=== PATIENT | female | born 1995 | race Caucasian/White ===

== ENCOUNTER 2018-08-26 22:56 | Inpatient (IN) | payer MEDICAID, OTHER ==
[~2018-08-26] VITALS: Ht 162.6 cm; Wt 82.0 kg
[2018-08-27] MEDS ORDERED: KETOROLAC 60 MG INJ IM STA (00:59)
[2018-08-27] MEDS ORDERED: HYDROmorphONE 0.5 MG/0.5 ML SYG IV STA (03:21)
[2018-08-27] MEDS ORDERED: SOD CHLORIDE 0.9% 1,000 ML IV STA (03:25)
[2018-08-27] MEDS ORDERED: PIPER-TAZO 3.375 GM IV (PMX) 100 ML IVPB ONE (03:30)
[2018-08-27 04:28] VITALS: Ht 162.6 cm; Wt 82.0 kg
[2018-08-27 04:29] VITALS: BP 122/70; PULSE 68; RESP 18
[2018-08-27] MEDS ORDERED: morphine 2 MG INJ IV PRN (04:30)
[2018-08-27] MEDS ORDERED: ACETAMINOPHEN 650 MG SUPP PR PRN (04:30)
[2018-08-27] MEDS ORDERED: ONDANSETRON 4 MG INJ IV PRN (04:30)
[2018-08-27] MEDS ORDERED: NACL 0.9% 3 ML SYG IV SCH (04:30)
[2018-08-27] MEDS ORDERED: ALBUTEROL/IPRATROPIUM (NEB) 3 ML AMP HHN PRN (04:30)
[2018-08-27] MEDS: DEXTROSE 5%-0.45% NACL 1,000 ML IV SCH ×3 (05:34→21:06)
--- NOTE | 2018-08-27 07:21 | HP ---
Date/Time of Note Date/Time of Note DATE: 08/27/18 TIME: 07:18 Assessment/Plan VTE Prophylaxis SCD applied (from Nsg): Yes Pharmacological prophylaxis: NA/contraindicated Pharm contraindication: low risk/ambulating, other (awaiting surgery) Lines/Catheters IV Catheter Type (from Nrsg): Peripheral IV Assessment/Plan Assessment/Plan 23 year-old female with right upper quadrant pain of 2 months duration secondary to cholecystitis, with CT showing immobile 1.7 cm stone in the gallbladder neck with findings suggestive of acute cholecystitis. PLAN -Keep n.p.o. with IV fluid -IV antibiotic -Pain management -Awaiting surgical eval Result Diagram: 08/27/18 0114 08/27/18 0114 Results 24hrs Laboratory Tests Test 08/27/18 01:14 08/27/18 01:26 White Blood Count 5.9 Red Blood Count 4.54 Hemoglobin 13.7 Hematocrit 39.8 Mean Corpuscular Volume 87.7 Mean Corpuscular Hemoglobin 30.2 Mean Corpuscular Hemoglobin Concent 34.4 Red Cell Distribution Width 12.2 Platelet Count 349 Mean Platelet Volume 9.9 Immature Granulocytes % 0.200 Neutrophils % 47.0 Lymphocytes % 43.1 Monocytes % 7.7 Eosinophils % 1.3 Basophils % 0.7 Nucleated Red Blood Cells % 0.0 Immature Granulocytes # 0.010 Neutrophils # 2.8 Lymphocytes # 2.6 Monocytes # 0.5 Eosinophils # 0.1 Basophils # 0.0 Nucleated Red Blood Cells # 0.0 Urine Color STRAW Urine Clarity CLEAR Urine pH 8.0 Urine Specific [place] 1.006 Urine Ketones NEGATIVE Urine Nitrite NEGATIVE Urine Bilirubin NEGATIVE Urine Urobilinogen NEGATIVE Urine Leukocyte Esterase NEGATIVE Urine Hemoglobin NEGATIVE Urine Glucose NEGATIVE Urine Total Protein NEGATIVE Sodium Level 143 Potassium Level 4.1 Chloride Level 103 Carbon Dioxide Level 30 Anion Gap 10 Blood Urea Nitrogen 6 L Creatinine 0.66 Est Glomerular Filtrat Rate mL/min > 60 Glucose Level 115 Calcium Level 9.9 Total Bilirubin 0.5 Direct Bilirubin 0.00 Indirect Bilirubin 0.5 Aspartate Amino Transf (AST/SGOT) 24 Alanine Aminotransferase (ALT/SGPT) 36 Alkaline Phosphatase 69 Total Protein 8.6 H Albumin 4.7 Globulin 3.90 H Albumin/Globulin Ratio 1.20 Lipase 73 POC Beta HCG, Qualitative NEGATIVE HPI/ROS Admit Date/Time Admit Date/Time Aug 27, 2018 at 03:10 Hx of Present Illness Patient is a 23-year-old female with no past medical history who presents the ER complaining of right upper quadrant abdominal pain x2 months. She also reported associated nausea/vomiting. She said a month ago she was evaluated at [facility] where an ultrasound was done. She was diagnosed with gastritis and has been taking Pepcid without improvement in her pain. When she presented to the ER, CT abdomen/pelvis shows Immobile 1.7 cm stone in the gallbladder neck with findings suggestive of acute cholecystitis and Hepatosteatosis. Liver chemistries and lipase WNL. PMH/Family/Social Past Medical History Medical History: no pertinent history Medications Current Medications Dextrose/Sodium Chloride 1,000 ml @ 120 mls/hr Q8H20M IV Last administered on 08/27/18at 05:34; Admin Dose 120 MLS/HR; Start 08/27/18 at 04:26 IV Flush (NS 3 ml) 3 ml PER PROTOCOL IV ; Start 08/27/18 at 04:30 Ondansetron HCl (Zofran Inj) 4 mg Q6H PRN IV NAUSEA/VOMITING; Start 08/27/18 at 04:30 Acetaminophen (Tylenol Supp) 650 mg Q6H PRN [place] .PAIN 1-3 OR TEMP; Start 08/27/18 at 04:30 Morphine Sulfate (morphine) 3 mg Q4H PRN IV .SEVERE PAIN 7-10; Start 08/27/18 at 04:30 Famotidine (Pepcid Iv) 20 mg Q12 IV ; Start 08/27/18 at 09:00 Albuterol/ Ipratropium (Duoneb) 3 ml Q2H RESP THERAPY PRN HHN SHORTNESS OF BREATH; Start 08/27/18 at 04:30 Ketorolac Tromethamine (Toradol) 30 mg Q6H PRN IV PAIN LEVEL 1-3; Start 08/27/18 at 04:30; Stop 08/30/18 at 04:29 Piperacillin Sod/ Tazobactam Sod 100 ml @ 200 mls/hr Q6 IVPB ; Start 08/27/18 at 08:00 Coded Allergies: No Known Allergy (Unverified , 08/26/18) Past Surgical History Past Surgical Hx: no surgical history Family History Significant Family History: no pertinent family hx Social History Alcohol Use: none Smoking Status: Never smoker Drug Use: none Exam/Review of Systems Vital Signs Vitals Vital Signs Date Temp Pulse Resp B/P (MAP) Pulse Ox O2 O2 Flow FiO2 Time Delivery Rate 08/27/18 98.0 68 18 122/70 99 Room Air 04:29 (87) Intake and Output 08/26/18 08/26/18 08/27/18 1515:00 23:00 07:00 IntakeIntake Total 1100 ml OutputOutput Total 200 ml BalanceBalance 900 ml Exam Constitutional: alert, oriented, well developed Head: normocephalic, atraumatic Eyes: EOMI, PERRL Respiratory: clear to auscultation, normal air movement Cardiovascular: regular rate and rhythm, nl pulses Gastrointestinal: soft, tender Extremities: normal pulses JACLYN ORTIZ MD Aug 27, 2018 07:21
[2018-08-27 07:53] VITALS: BP 96/59; PULSE 64; RESP 20
[2018-08-27] MEDS: KETOROLAC 30 MG INJ IV PRN ×3 (09:42→22:07)
[2018-08-27] MEDS: PIPER-TAZO 3.375 GM IV (PMX) 100 ML IVPB SCH ×3 (09:42→17:41)
[2018-08-27] MEDS: FAMOTIDINE 20 MG INJ IV SCH ×2 (09:42→21:29)
--- NOTE | 2018-08-27 17:55 | PN ---
Date/Time of Note Date/Time of Note DATE: 08/27/18 TIME: 17:53 Assessment/Plan VTE Prophylaxis Risk score (from Ns)>0 risk: 0 SCD applied (from Ns): Yes Pharmacological prophylaxis: NA/contraindicated Pharm contraindication: low risk/ambulating Lines/Catheters IV Catheter Type (from Nrsg): Peripheral IV Urinary Cath still in place: No Assessment/Plan Hospital Course Assessment and plan #Cholecystitis. Continue IV fluids Surgeon consulted Continue with analgesics Antipyretics as needed for fever On antibiotics for now #Obesity Weight reduction to be advised Disposition and plan. Continue with IV fluids. Continue analgesics. Surgeon evaluation to follow. Discussed POC with Dr. Caballero Result Diagram: 08/27/18 0114 08/27/18 0114 Results 24hrs Laboratory Tests Test 08/27/18 01:14 08/27/18 01:26 White Blood Count 5.9 Red Blood Count 4.54 Hemoglobin 13.7 Hematocrit 39.8 Mean Corpuscular Volume 87.7 Mean Corpuscular Hemoglobin 30.2 Mean Corpuscular Hemoglobin Concent 34.4 Red Cell Distribution Width 12.2 Platelet Count 349 Mean Platelet Volume 9.9 Immature Granulocytes % 0.200 Neutrophils % 47.0 Lymphocytes % 43.1 Monocytes % 7.7 Eosinophils % 1.3 Basophils % 0.7 Nucleated Red Blood Cells % 0.0 Immature Granulocytes # 0.010 Neutrophils # 2.8 Lymphocytes # 2.6 Monocytes # 0.5 Eosinophils # 0.1 Basophils # 0.0 Nucleated Red Blood Cells # 0.0 Urine Color STRAW Urine Clarity CLEAR Urine pH 8.0 Urine Specific [place] 1.006 Urine Ketones NEGATIVE Urine Nitrite NEGATIVE Urine Bilirubin NEGATIVE Urine Urobilinogen NEGATIVE Urine Leukocyte Esterase NEGATIVE Urine Hemoglobin NEGATIVE Urine Glucose NEGATIVE Urine Total Protein NEGATIVE Sodium Level 143 Potassium Level 4.1 Chloride Level 103 Carbon Dioxide Level 30 Anion Gap 10 Blood Urea Nitrogen 6 L Creatinine 0.66 Est Glomerular Filtrat Rate mL/min > 60 Glucose Level 115 Calcium Level 9.9 Total Bilirubin 0.5 Direct Bilirubin 0.00 Indirect Bilirubin 0.5 Aspartate Amino Transf (AST/SGOT) 24 Alanine Aminotransferase (ALT/SGPT) 36 Alkaline Phosphatase 69 Total Protein 8.6 H Albumin 4.7 Globulin 3.90 H Albumin/Globulin Ratio 1.20 Lipase 73 POC Beta HCG, Qualitative NEGATIVE Subjective 24 Hr Interval Summary Free Text/Dictation Still reports having some abdominal pain. No reports of nausea vomiting at present. Exam/Review of Systems Exam Vitals Vital Signs Date Temp Pulse Resp B/P (MAP) Pulse Ox O2 O2 Flow FiO2 Time Delivery Rate 08/27/18 98.0 64 20 96/59 (71) 99 Room Air 07:53 Intake and Output 08/26/18 08/26/18 08/27/18 1515:00 23:00 07:00 IntakeIntake Total 1100 ml OutputOutput Total 200 ml BalanceBalance 900 ml Constitutional: alert, oriented Psych: nl mood/affect Head: normocephalic Respiratory: clear to auscultation, normal air movement Gastrointestinal: soft, tender Neurological: MUSICAL PERFORMER II-XII intact, nl mental status, nl speech Skin: nl turgor Results Results 24hrs Laboratory Tests Test 08/27/18 01:14 08/27/18 01:26 White Blood Count 5.9 Red Blood Count 4.54 Hemoglobin 13.7 Hematocrit 39.8 Mean Corpuscular Volume 87.7 Mean Corpuscular Hemoglobin 30.2 Mean Corpuscular Hemoglobin Concent 34.4 Red Cell Distribution Width 12.2 Platelet Count 349 Mean Platelet Volume 9.9 Immature Granulocytes % 0.200 Neutrophils % 47.0 Lymphocytes % 43.1 Monocytes % 7.7 Eosinophils % 1.3 Basophils % 0.7 Nucleated Red Blood Cells % 0.0 Immature Granulocytes # 0.010 Neutrophils # 2.8 Lymphocytes # 2.6 Monocytes # 0.5 Eosinophils # 0.1 Basophils # 0.0 Nucleated Red Blood Cells # 0.0 Urine Color STRAW Urine Clarity CLEAR Urine pH 8.0 Urine Specific [place] 1.006 Urine Ketones NEGATIVE Urine Nitrite NEGATIVE Urine Bilirubin NEGATIVE Urine Urobilinogen NEGATIVE Urine Leukocyte Esterase NEGATIVE Urine Hemoglobin NEGATIVE Urine Glucose NEGATIVE Urine Total Protein NEGATIVE Sodium Level 143 Potassium Level 4.1 Chloride Level 103 Carbon Dioxide Level 30 Anion Gap 10 Blood Urea Nitrogen 6 L Creatinine 0.66 Est Glomerular Filtrat Rate mL/min > 60 Glucose Level 115 Calcium Level 9.9 Total Bilirubin 0.5 Direct Bilirubin 0.00 Indirect Bilirubin 0.5 Aspartate Amino Transf (AST/SGOT) 24 Alanine Aminotransferase (ALT/SGPT) 36 Alkaline Phosphatase 69 Total Protein 8.6 H Albumin 4.7 Globulin 3.90 H Albumin/Globulin Ratio 1.20 Lipase 73 POC Beta HCG, Qualitative NEGATIVE Medications Medication Current Medications Dextrose/Sodium Chloride 1,000 ml @ 120 mls/hr Q8H20M IV Last administered on 08/27/18at 17:41; Admin Dose 120 MLS/HR; Start 08/27/18 at 04:26 IV Flush (NS 3 ml) 3 ml PER PROTOCOL IV ; Start 08/27/18 at 04:30 Ondansetron HCl (Zofran Inj) 4 mg Q6H PRN IV NAUSEA/VOMITING; Start 08/27/18 at 04:30 Acetaminophen (Tylenol Supp) 650 mg Q6H PRN [place] .PAIN 1-3 OR TEMP; Start 08/27/18 at 04:30 Morphine Sulfate (morphine) 3 mg Q4H PRN IV .SEVERE PAIN 7-10; Start 08/27/18 at 04:30 Famotidine (Pepcid Iv) 20 mg Q12 IV Last administered on 08/27/18at 09:42; Admin Dose 20 MG; Start 08/27/18 at 09:00 Albuterol/ Ipratropium (Duoneb) 3 ml Q2H RESP THERAPY PRN HHN SHORTNESS OF BREATH; Start 08/27/18 at 04:30 Ketorolac Tromethamine (Toradol) 30 mg Q6H PRN IV PAIN LEVEL 1-3 Last administered on 08/27/18at 16:03; Admin Dose 30 MG; Start 08/27/18 at 04:30; Stop 08/30/18 at 04:29 Piperacillin Sod/ Tazobactam Sod 100 ml @ 200 mls/hr Q6 IVPB Last administered on 08/27/18at 17:41; Admin Dose 200 MLS/HR; Start 08/27/18 at 08:00 VIMAL VILLA NP Aug 27, 2018 17:55
[2018-08-27 19:39] VITALS: BP 109/56; PULSE 72; RESP 18
[2018-08-28] VITALS (27 sets, daily range): BP systolic 98–129; BP diastolic 50–80; PULSE 60–88; RESP 15–26
[2018-08-28] MEDS: PIPER-TAZO 3.375 GM IV (PMX) 100 ML IVPB SCH ×5 (00:09→21:45)
[2018-08-28] MEDS: DEXTROSE 5%-0.45% NACL 1,000 ML IV SCH ×4 (03:17→21:45)
[2018-08-28] MEDS ORDERED: DESFLURANE 15 MIN ONE (07:00)
[2018-08-28] MEDS: FAMOTIDINE 20 MG INJ IV SCH ×2 (08:45→20:41)
[2018-08-28] MEDS: KETOROLAC 30 MG INJ IV PRN ×3 (08:46→21:45)
--- NOTE | 2018-08-28 09:52 | PN ---
Date/Time of Note Date/Time of Note DATE: 08/28/18 TIME: 09:50 Assessment/Plan VTE Prophylaxis Risk score (from Nsg)>0 risk: 0 SCD applied (from Nsg): No SCD contraindicated: other Pharmacological prophylaxis: NA/contraindicated Pharm contraindication: low risk/ambulating Lines/Catheters IV Catheter Type (from Nrsg): Peripheral IV Urinary Cath still in place: No Assessment/Plan Hospital Course SUBJECTIVE: Continues to have abdominal pain, requiring pain medications. OBJECTIVE: Physical Exam General: Obese, 23 year-old female lying in bed in no apparent distress. HEENT: Normocephalic, atraumatic. Eyes: Anicteric sclerae, conjunctivae clear. ENT: Nasal septum midline, oral mucosa is dry. Neck supple, no JVD noticed. Respiratory: Bilaterally clear breath sounds. No use of accessory muscles of respiration. No adventitious breath sounds. Cardiovascular: S1, S2 heard. No murmurs or gallops. Abdomen: Soft, nontender, and nondistended. Bowel sounds positive in all 4 quadrants. Genitourinary: Deferred. Extremities: No cyanosis, no clubbing, no edema. Peripheral pulses palpable. Neurologic: Cranial nerves II through XII grossly intact. The patient is awake, alert, and oriented. Skin: Normal skin turgor. No skin rashes. Labs & Vitals per chart ASSESSMENT & PLAN 23-year-old female with no significant past medical history who presented to the emergency room with chief complaint of abdominal pain with multiple episodes of nausea and vomiting, who was previously evaluated at [facility] and has been managed symptomatically for her abdominal pain. Gallbladder ultrasound at [facility] ER showed a mobile 1.7 cm stone in the gallbladder neck with findings suggestive of acute cholecystitis and hepato- steatosis. 1. Symptomatic cholelithiasis. Possible underlying cholecystitis. Continue antimicrobials. General surgery evaluation pending. 2. Obesity. BMI 31 kg/m. Weight reduction will be advised. 3. Fluids, electrolytes, and nutrition. N.p.o. except for medications. IVFs. 4. DVT prophylaxis Bilateral SCDs. 5. Plan. Continue pain control. Continue antimicrobials. Await surgical evaluation/intervention. The patient was seen in collaboration with Dr. Marks. Result Diagram: 08/28/18 0431 08/28/18 0431 Results 24hrs Laboratory Tests Test 08/28/18 04:31 White Blood Count 4.7 #L Red Blood Count 3.90 L Hemoglobin 11.7 L Hematocrit 34.9 L Mean Corpuscular Volume 89.5 Mean Corpuscular Hemoglobin 30.0 Mean Corpuscular Hemoglobin Concent 33.5 Red Cell Distribution Width 12.7 Platelet Count 285 Mean Platelet Volume 10.1 Immature Granulocytes % 0.200 Neutrophils % 35.4 L Lymphocytes % 51.8 H Monocytes % 8.7 Eosinophils % 2.8 Basophils % 1.1 Nucleated Red Blood Cells % 0.0 Immature Granulocytes # 0.010 Neutrophils # 1.7 Lymphocytes # 2.4 Monocytes # 0.4 Eosinophils # 0.1 Basophils # 0.1 Nucleated Red Blood Cells # 0.0 Sodium Level 140 Potassium Level 3.7 Chloride Level 107 Carbon Dioxide Level 27 Anion Gap 6 Blood Urea Nitrogen 4 L Creatinine 0.65 Est Glomerular Filtrat Rate mL/min > 60 Glucose Level 125 Calcium Level 8.8 Phosphorus Level 3.6 Magnesium Level 1.9 Total Bilirubin 0.7 Direct Bilirubin 0.00 Indirect Bilirubin 0.7 Aspartate Amino Transf (AST/SGOT) 23 Alanine Aminotransferase (ALT/SGPT) 29 Alkaline Phosphatase 46 Total Protein 6.3 # Albumin 3.7 # Globulin 2.60 Albumin/Globulin Ratio 1.42 Exam/Review of Systems Exam Vitals Vital Signs Date Temp Pulse Resp B/P (MAP) Pulse Ox O2 O2 Flow FiO2 Time Delivery Rate 08/28/18 98.2 60 19 99/58 (72) 98 07:29 08/28/18 Room Air 03:12 Intake and Output 08/27/18 08/27/18 08/28/18 1515:00 23:00 07:00 IntakeIntake Total 200 ml 1100 ml 1500 ml BalanceBalance 200 ml 1100 ml 1500 ml Results Results 24hrs Laboratory Tests Test 08/28/18 04:31 White Blood Count 4.7 #L Red Blood Count 3.90 L Hemoglobin 11.7 L Hematocrit 34.9 L Mean Corpuscular Volume 89.5 Mean Corpuscular Hemoglobin 30.0 Mean Corpuscular Hemoglobin Concent 33.5 Red Cell Distribution Width 12.7 Platelet Count 285 Mean Platelet Volume 10.1 Immature Granulocytes % 0.200 Neutrophils % 35.4 L Lymphocytes % 51.8 H Monocytes % 8.7 Eosinophils % 2.8 Basophils % 1.1 Nucleated Red Blood Cells % 0.0 Immature Granulocytes # 0.010 Neutrophils # 1.7 Lymphocytes # 2.4 Monocytes # 0.4 Eosinophils # 0.1 Basophils # 0.1 Nucleated Red Blood Cells # 0.0 Sodium Level 140 Potassium Level 3.7 Chloride Level 107 Carbon Dioxide Level 27 Anion Gap 6 Blood Urea Nitrogen 4 L Creatinine 0.65 Est Glomerular Filtrat Rate mL/min > 60 Glucose Level 125 Calcium Level 8.8 Phosphorus Level 3.6 Magnesium Level 1.9 Total Bilirubin 0.7 Direct Bilirubin 0.00 Indirect Bilirubin 0.7 Aspartate Amino Transf (AST/SGOT) 23 Alanine Aminotransferase (ALT/SGPT) 29 Alkaline Phosphatase 46 Total Protein 6.3 # Albumin 3.7 # Globulin 2.60 Albumin/Globulin Ratio 1.42 Medications Medication Current Medications Dextrose/Sodium Chloride 1,000 ml @ 120 mls/hr Q8H20M IV Last administered on 08/28/18at 03:17; Admin Dose 120 MLS/HR; Start 08/27/18 at 04:26 IV Flush (NS 3 ml) 3 ml PER PROTOCOL IV ; Start 08/27/18 at 04:30 Ondansetron HCl (Zofran Inj) 4 mg Q6H PRN IV NAUSEA/VOMITING Last administered on 08/28/18at 08:46; Admin Dose 4 MG; Start 08/27/18 at 04:30 Acetaminophen (Tylenol Supp) 650 mg Q6H PRN [place] .PAIN 1-3 OR TEMP; Start 08/27/18 at 04:30 Morphine Sulfate (morphine) 3 mg Q4H PRN IV .SEVERE PAIN 7-10; Start 08/27/18 at 04:30 Famotidine (Pepcid Iv) 20 mg Q12 IV Last administered on 08/28/18at 08:45; Admin Dose 20 MG; Start 08/27/18 at 09:00 Albuterol/ Ipratropium (Duoneb) 3 ml Q2H RESP THERAPY PRN HHN SHORTNESS OF BREATH; Start 08/27/18 at 04:30 Ketorolac Tromethamine (Toradol) 30 mg Q6H PRN IV PAIN LEVEL 1-3 Last administered on 08/28/18at 08:46; Admin Dose 30 MG; Start 08/27/18 at 04:30; Stop 08/30/18 at 04:29 Piperacillin Sod/ Tazobactam Sod 100 ml @ 200 mls/hr Q6 IVPB Last administered on 08/28/18at 05:52; Admin Dose 200 MLS/HR; Start 08/27/18 at 08:00 JACKELYN VILLANUEVA NP Aug 28, 2018 09:52
--- NOTE | 2018-08-28 10:03 | CONS ---
Assessment/Plan Assessment/Plan Hospital Course (Demo Recall) Admitted to the hospital with 2 M hx of pain, started on Antibx and pain control Assessment/Plan (Daily) Acute Cholecystitis secondary to gallstone in the neck of the Gallbladder Plan for Lap Peggy Antibx IV IVF CT with IV contrast Consultation Date/Type/Reason Admit Date/Time Aug 27, 2018 at 03:10 Type of Consult Gen Surgery Reason for Consultation Evaluation of recurring abdominal pain Date/Time of Note DATE: 08/28/18 TIME: 09:55 Hx of Present Illness Patient is a 23-year-old female with no past medical history who presents the ER complaining of right upper quadrant abdominal pain x2 months. She also reported associated nausea/vomiting. She said a month ago she was evaluated at [facility] where an ultrasound was done. She was diagnosed with gastritis and has been taking Pepcid without improvement in her pain. When she presented to the ER, CT abdomen/pelvis shows Immobile 1.7 cm stone in the gallbladder neck with findings suggestive of acute cholecystitis and Hepatosteatosis. Liver chemistries and lipase WNL. Past Medical History Medical History: no pertinent history Medications Current Medications Dextrose/Sodium Chloride 1,000 ml @ 120 mls/hr Q8H20M IV Last administered on 08/28/18at 03:17; Admin Dose 120 MLS/HR; Start 08/27/18 at 04:26 IV Flush (NS 3 ml) 3 ml PER PROTOCOL IV ; Start 08/27/18 at 04:30 Ondansetron HCl (Zofran Inj) 4 mg Q6H PRN IV NAUSEA/VOMITING Last administered on 08/28/18at 08:46; Admin Dose 4 MG; Start 08/27/18 at 04:30 Acetaminophen (Tylenol Supp) 650 mg Q6H PRN [place] .PAIN 1-3 OR TEMP; Start 08/27/18 at 04:30 Morphine Sulfate (morphine) 3 mg Q4H PRN IV .SEVERE PAIN 7-10; Start 08/27/18 at 04:30 Famotidine (Pepcid Iv) 20 mg Q12 IV Last administered on 08/28/18at 08:45; Admin Dose 20 MG; Start 08/27/18 at 09:00 Albuterol/ Ipratropium (Duoneb) 3 ml Q2H RESP THERAPY PRN HHN SHORTNESS OF BREATH; Start 08/27/18 at 04:30 Ketorolac Tromethamine (Toradol) 30 mg Q6H PRN IV PAIN LEVEL 1-3 Last administered on 08/28/18at 08:46; Admin Dose 30 MG; Start 08/27/18 at 04:30; Stop 08/30/18 at 04:29 Piperacillin Sod/ Tazobactam Sod 100 ml @ 200 mls/hr Q6 IVPB Last administered on 08/28/18at 05:52; Admin Dose 200 MLS/HR; Start 08/27/18 at 08:00 Allergies: Coded Allergies: No Known Allergy (Unverified , 08/26/18) Past Surgical History Past Surgical Hx: no surgical history Social History Alcohol Use: none Smoking Status: Never smoker Drug Use: none Exam/Review of Systems Exam Vitals Vital Signs Date Temp Pulse Resp B/P (MAP) Pulse Ox O2 O2 Flow FiO2 Time Delivery Rate 08/28/18 98.2 60 19 99/58 (72) 98 07:29 08/28/18 Room Air 03:12 Intake and Output 08/27/18 08/27/18 08/28/18 1414:59 22:59 06:59 IntakeIntake Total 200 ml 1100 ml 1500 ml BalanceBalance 200 ml 1100 ml 1500 ml Results Result Diagram: 08/28/18 0431 08/28/18 0431 Results 24hrs Laboratory Tests Test 08/28/18 04:31 White Blood Count 4.7 #L Red Blood Count 3.90 L Hemoglobin 11.7 L Hematocrit 34.9 L Mean Corpuscular Volume 89.5 Mean Corpuscular Hemoglobin 30.0 Mean Corpuscular Hemoglobin Concent 33.5 Red Cell Distribution Width 12.7 Platelet Count 285 Mean Platelet Volume 10.1 Immature Granulocytes % 0.200 Neutrophils % 35.4 L Lymphocytes % 51.8 H Monocytes % 8.7 Eosinophils % 2.8 Basophils % 1.1 Nucleated Red Blood Cells % 0.0 Immature Granulocytes # 0.010 Neutrophils # 1.7 Lymphocytes # 2.4 Monocytes # 0.4 Eosinophils # 0.1 Basophils # 0.1 Nucleated Red Blood Cells # 0.0 Sodium Level 140 Potassium Level 3.7 Chloride Level 107 Carbon Dioxide Level 27 Anion Gap 6 Blood Urea Nitrogen 4 L Creatinine 0.65 Est Glomerular Filtrat Rate mL/min > 60 Glucose Level 125 Calcium Level 8.8 Phosphorus Level 3.6 Magnesium Level 1.9 Total Bilirubin 0.7 Direct Bilirubin 0.00 Indirect Bilirubin 0.7 Aspartate Amino Transf (AST/SGOT) 23 Alanine Aminotransferase (ALT/SGPT) 29 Alkaline Phosphatase 46 Total Protein 6.3 # Albumin 3.7 # Globulin 2.60 Albumin/Globulin Ratio 1.42 Imaging Imaging FINDINGS: Study technically degraded by shadowing related to bowel gas and patient body habitus. Liver demonstrates normal size and contour, measuring 15.1 cm cranial caudad. Hepatic parenchyma demonstrates increased echogenicity throughout, without identifiable focal mass lesion. No intrahepatic biliary ductal dilatation identified. The portal vein is patent with normal direction of flow. Gallbladder is severely distended, demonstrating borderline wall thickening to 3 mm with an immobile 1.7 cm stone in the gallbladder neck. No identifiable pericholecystic fluid. Sonographic Mitchell's sign is positive per the technologis t's note. No extrahepatic biliary ductal dilatation, common bile duct measuring up to 3.2 mm. Pancreas is largely obscured by bowel gas and not well evaluated on today's exam. No free fluid is identified. Right kidney demonstrates normal size, contour and echogenicity, measuring 11.1 cm in length, without identifiable nephrolithiasis or hydronephrosis. IMPRESSION: 1. Immobile 1.7 cm stone in the gallbladder neck with findings suggestive of acute cholecystitis. 2. Hepatosteatosis. Medications Medication Current Medications Dextrose/Sodium Chloride 1,000 ml @ 120 mls/hr Q8H20M IV Last administered on 08/28/18at 03:17; Admin Dose 120 MLS/HR; Start 08/27/18 at 04:26 IV Flush (NS 3 ml) 3 ml PER PROTOCOL IV ; Start 08/27/18 at 04:30 Ondansetron HCl (Zofran Inj) 4 mg Q6H PRN IV NAUSEA/VOMITING Last administered on 08/28/18at 08:46; Admin Dose 4 MG; Start 08/27/18 at 04:30 Acetaminophen (Tylenol Supp) 650 mg Q6H PRN [place] .PAIN 1-3 OR TEMP; Start 08/27/18 at 04:30 Morphine Sulfate (morphine) 3 mg Q4H PRN IV .SEVERE PAIN 7-10; Start 08/27/18 at 04:30 Famotidine (Pepcid Iv) 20 mg Q12 IV Last administered on 08/28/18at 08:45; Admin Dose 20 MG; Start 08/27/18 at 09:00 Albuterol/ Ipratropium (Duoneb) 3 ml Q2H RESP THERAPY PRN HHN SHORTNESS OF BREATH; Start 08/27/18 at 04:30 Ketorolac Tromethamine (Toradol) 30 mg Q6H PRN IV PAIN LEVEL 1-3 Last administered on 08/28/18at 08:46; Admin Dose 30 MG; Start 08/27/18 at 04:30; St op 08/30/18 at 04:29 Piperacillin Sod/ Tazobactam Sod 100 ml @ 200 mls/hr Q6 IVPB Last administered on 08/28/18at 05:52; Admin Dose 200 MLS/HR; Start 08/27/18 at 08:00 KERRI LU MD Aug 28, 2018 10:03
[2018-08-28] MEDS ORDERED: SOD CHLORIDE 0.9% 100 ML ONE (13:50)
[2018-08-28] MEDS ORDERED: IOHEXOL 300MG/ML 150 ML BTL ONE (13:50)
--- NOTE | 2018-08-28 16:16 | PREAC ---
Date/Time of Note Date/Time of Note DATE: 08/28/18 TIME: 16:15 Anesthesia Eval and Record Evaluation Time Pre-Procedure Interview DATE: 08/28/18 TIME: 16:15 Age 23 Sex female NPO: 8 hrs Preoperative diagnosis SYMPTOMATIC CHOLELITHIASIS Planned procedure LAP MAGDALENE Past Medical History Past Medical History: Includes GI: Obesity Surgery & Anesthesia Issues No known issue Meds Anticoagulation: No Beta Jed within 24 hr: No Reason Beta Jed not given: Pt. not on B-Jed Current Medications Dextrose/Sodium Chloride 1,000 ml @ 120 mls/hr Q8H20M IV Last administered on 08/28/18at 12:39; Admin Dose 120 MLS/HR; Start 08/27/18 at 04:26 IV Flush (NS 3 ml) 3 ml PER PROTOCOL IV ; Start 08/27/18 at 04:30 Ondansetron HCl (Zofran Inj) 4 mg Q6H PRN IV NAUSEA/VOMITING Last administered on 08/28/18at 08:46; Admin Dose 4 MG; Start 08/27/18 at 04:30 Acetaminophen (Tylenol Supp) 650 mg Q6H PRN [place] .PAIN 1-3 OR TEMP; Start 08/27/18 at 04:30 Morphine Sulfate (morphine) 3 mg Q4H PRN IV .SEVERE PAIN 7-10; Start 08/27/18 at 04:30 Famotidine (Pepcid Iv) 20 mg Q12 IV Last administered on 08/28/18at 08:45; Admin Dose 20 MG; Start 08/27/18 at 09:00 Albuterol/ Ipratropium (Duoneb) 3 ml Q2H RESP THERAPY PRN HHN SHORTNESS OF BREATH; Start 08/27/18 at 04:30 Ketorolac Tromethamine (Toradol) 30 mg Q6H PRN IV PAIN LEVEL 1-3 Last admini stered on 08/28/18at 15:34; Admin Dose 30 MG; Start 08/27/18 at 04:30; Stop 08/30/18 at 04:29 Piperacillin Sod/ Tazobactam Sod 100 ml @ 200 mls/hr Q6 IVPB Last administered on 08/28/18at 12:39; Admin Dose 200 MLS/HR; Start 08/27/18 at 08:00 Meds reviewed: Yes Allergies Coded Allergies: No Known Allergy (Unverified , 08/26/18) Allergies Reviewed: Yes Labs/Studies Labs Reviewed: Reviewed by anesthesiologist Result Diagram: 08/28/18 0431 08/28/18 0431 Laboratory Tests 08/28/18 04:31 test: Negative Pre-procedure Exam Last vitals Vital Signs Date Temp Pulse Resp B/P (MAP) Pulse Ox O2 O2 Flow FiO2 Time Delivery Rate 08/28/18 97.2 82 19 112/72 97 14:47 (85) 08/28/18 Room Air 03:12 Airway: Adequate mouth opening, Adequate thyromental dist Mallampati: Mallampati II Teeth: Normal Lung: Normal Heart: Normal ASA Physical Status ASA physical status: 2 Emergency: None Planned Anesthetic General/MAC: ETT Nerve block: TAP (bilateral) Planned Pain Management Single shot nerve block Pre-operative Attestations Prior to commencing anesthesia and surgery, the patient was re-evaluated, there was verification of: *The patient's identity *The results of appropriate recent lab work and preoperative vital signs *The above evaluation not changing prior to induction *Anesthetic plan, risk benefits, alternative and complications discussed with patient/family; questions answered; patient/family understands, accepts and wishes to proceed. Mitchell Chu M.D. Aug 28, 2018 16:16
[2018-08-28] MEDS ORDERED: CEFAZOLIN 1 GM INJ ONE (16:19)
[2018-08-28] MEDS ORDERED: GLYCOPYRROLATE 0.4 MG INJ ONE (16:19)
[2018-08-28] MEDS ORDERED: ROCURONIUM 50 MG INJ ONE ×2 (16:19→17:39)
[2018-08-28] MEDS ORDERED: NEOSTIGMINE 3 MG/3 ML SYRINGE ONE (16:19)
[2018-08-28] MEDS ORDERED: PROPOFOL 20 ML ONE (16:19)
[2018-08-28] MEDS ORDERED: MIDAZOLAM 1 MG/ML 2 ML INJ ONE (16:23)
[2018-08-28] MEDS ORDERED: DEXAMETHASONE 4 MG/ML 5 ML INJ ONE (16:23)
[2018-08-28] MEDS ORDERED: ONDANSETRON 4 MG INJ ONE (16:23)
[2018-08-28] MEDS ORDERED: FENTAnyl 50 MCG/ML VIAL ONE ×2 (16:23→16:52)
[2018-08-28] MEDS ORDERED: ROPIVACAINE 0.5 % 30 ML VIAL ONE (16:24)
[2018-08-28] MEDS ORDERED: OXYCODONE/ACETAMINOPHEN (5/325) TAB PO PRN ×2 (16:30)
[2018-08-28] MEDS ORDERED: MIDAZOLAM 1 MG/ML 2 ML INJ IV PRN (16:30)
[2018-08-28] MEDS ORDERED: ONDANSETRON 4 MG INJ IV PRN ×2 (16:30→18:30)
[2018-08-28] MEDS ORDERED: hydrALAzine 20 MG INJ IV PRN (16:30)
[2018-08-28] MEDS ORDERED: TRIMETHOBENZAMIDE 100 MG/ML VIAL IM PRN (16:30)
[2018-08-28] MEDS ORDERED: HYDROmorphONE 1 MG/5 ML IV SYRINGE IV PRN ×3 (16:30)
[2018-08-28] MEDS ORDERED: IPRATROPIUM (NEB) 0.5 MG/2.5 ML AMP HHN PRN (16:30)
[2018-08-28] MEDS ORDERED: EPHEDrine 25 MG/5 ML SYG IV PRN (16:30)
[2018-08-28] MEDS ORDERED: DIPHENHYDRAMINE 50 MG INJ IV PRN ×2 (16:30→18:30)
[2018-08-28] MEDS ORDERED: FENTAnyl 50 MCG/ML VIAL IV PRN ×2 (16:30)
[2018-08-28] MEDS ORDERED: MEPERIDINE 25 MG INJ IV PRN (16:30)
[2018-08-28] MEDS ORDERED: ALBUTEROL 0.083% (NEB) 2.5 MG/3 ML AMP HHN PRN (16:30)
[2018-08-28] MEDS ORDERED: LABETALOL HCL 20MG INJ IV PRN (16:30)
[2018-08-28] MEDS ORDERED: BUPIVACAINE 0.25%/EPI (SDV) 30 ML INJ ONE (16:37)
[2018-08-28] MEDS ORDERED: KETOROLAC 30 MG INJ ONE (17:26)
--- NOTE | 2018-08-28 18:04 | SIPON ---
Date/Time of Note Date/Time of Note DATE: 08/28/18 TIME: 18:02 Operative Report Preoperative Diagnosis Acute cholecystitis, Hydrops, chronic cholecystitis Postoperative Diagnosis Same Operation/Procedure Performed Lap cholecystectomy Surgeon Michael Swift MD. switchboard operator assistant none Anesthesia: general, other (TAP) Estimated blood loss: minimal Transfusion Required none Specimen gallbladder Grafts/Implants none Complications none MICHAEL SWIFT MD Aug 28, 2018 18:04
[2018-08-28] MEDS: FENTAnyl 50 MCG/ML VIAL IV PRN ×2 (18:05→19:36)
[2018-08-28] MEDS ORDERED: METOCLOPRAMIDE 10 MG INJ IV PRN (18:30)
[2018-08-28] MEDS: LACTATED RINGER'S 1,000 ML IV SCH (19:45)
--- NOTE | 2018-08-28 22:48 | OPR ---
DATE OF OPERATION: 08/28/2018 PREOPERATIVE DIAGNOSIS: 1. Acute abdominal pain. 2. Acute cholecystitis. 3. Chronic cholecystitis. 4. Morbid obesity with body mass index of 31. POSTOPERATIVE DIAGNOSES: 1. Acute abdominal pain. 2. Acute cholecystitis. 3. Chronic cholecystitis. 4. Morbid obesity with body mass index of 31. 5. Hydrops gallbladder. PATIENT HISTORY: The patient is a 23-year-old female with more than 2-month history of ongoing abdom inal pain, worsening with food. The patient had previous hospitalization and continued to have sever e pain, presented to [facility] with ongoing symptoms and an ultrasound that showed an impacted gallstone at the neck of the gallbladder. After discussion with the patient regarding r isk of bleeding, infection, risk of common bile duct injury, risk of Mirizzi syndrome, and associated injuries, the patient agreed to undergo a laparoscopic cholecystectomy with possible open cholecyste ctomy to address the impacted stone at the neck of the gallbladder. OPERATIVE REPORT: The patient was brought to OR and placed in supine position. Sequential compressi on devices were applied to bilateral lower extremities. Preoperative antibiotic was delivered to the patient. The patient was sedated and intubated. Anterior abdominal wall was prepped and draped in usual surgical fashion. A Veress needle insufflation was achieved through a left upper quadrant stab incision site. The abdomen was insufflated to 15 mmHg. Once the abdomen was insufflated, the patie nt was placed in a steep reverse Trendelenburg position. We proceeded to place an Optiview trocar th rough a periumbilical incision under direct visualization. Once inside the peritoneal cavity, we pro ceeded to place additional trocars, one 5 mm trocar in the right anterior midclavicular line, one at the midclavicular line, additional 12 mm at the subxiphoid process. Next, using a triangulation tech nique, the gallbladder was mobilized superiorly and laterally, and the triangle of Calot was opened u p to allow for dissection. To my surprise, the amount of adhesions at this junction was rather unimp ressive. Careful dissection of the cystic duct was performed. Impacted gallstone at the neck of the gallbladder required disimpaction and that was readily disimpacted into the gallbladder, and the gal lbladder was decompressed because of the hydrops. The hydrops resulted in clear fluid that was expre ssed from the gallbladder. Once the gallbladder was decompressed, we were able to mobilize the gallb ladder superolaterally and released the peritoneal covering of the gallbladder for our dissection of the cystic duct and gallbladder neck junction. Once the peritoneal covering both anteriorly and post eriorly was released, we proceeded to skeletonize the cystic duct and locate the cystic artery and th e Calot lymph node. Once the critical view was achieved and a picture was obtained, we proceeded to divide the cystic duct with 2 clips on the proximal and 1 clip on the distal followed by cystic arter y, 2 clips in the proximal, 1 in the distal, dividing these structures with careful attention to ensu re safety of the associated structures. Next, we proceeded to remove the gallbladder off the gallbla dder bed using a hook cautery with careful attention not to injure any associated organs. Once the g allbladder mobilization removal was completed, we proceeded to irrigate and close each port. The talha n 12 mm port at the subxiphoid area was closed with 1 [id number] 0 Vicryl suture followed by mul tiple skin interrupted 3-0 Monocryl sutures. The patient tolerated procedure well and was sent to [facility] in stable condition. Dictated By: KERRI SARAVIA Conf#: [id number] DID#: [id number] CC: JACLYN ORTIZ MD;*EndCC*
[2018-08-29 00:04] VITALS: BP 111/73; PULSE 93; RESP 18
[2018-08-29 03:29] VITALS: BP 109/79; PULSE 62; RESP 18
[2018-08-29] MEDS: LACTATED RINGER'S 1,000 ML IV SCH (04:04)
[2018-08-29] MEDS: KETOROLAC 30 MG INJ IV PRN ×2 (04:57→11:21)
[2018-08-29] MEDS: PIPER-TAZO 3.375 GM IV (PMX) 100 ML IVPB SCH ×3 (04:57→18:15)
[2018-08-29 08:01] VITALS: BP 107/72; PULSE 60; RESP 18
[2018-08-29] MEDS: FAMOTIDINE 20 MG INJ IV SCH ×2 (08:25→20:41)
[2018-08-29] MEDS: HYDROCODONE/APAP (5/325) TAB PO PRN (08:27)
[2018-08-29] MEDS ORDERED: DOCU-144 PO (10:29)
[2018-08-29] MEDS ORDERED: HYDR-3601 PO (10:29)
--- NOTE | 2018-08-29 10:31 | PDOCDIS ---
Discharge Instructions CONDITION [id number] Patient Condition: [id number] Stable HOME CARE INSTRUCTIONS: [id number] Diet Instructions: [id number] Regular FOLLOW UP/APPOINTMENTS Follow-up Plan Michael Swift MD Specialty: General Surgery Office Address [address] [place] [address] Office OTHER ORDERS: Other Orders: 1. Regular diet as tolerated. 2. Keep incisions clean and dry. May shower. Avoid tub baths and swimming for 2 weeks. Use mild soap and pat dry the incisions. 3. Take medications as needed for pain. 4. Call the surgeon or go to the nearest ER if you have severe abdominal pain despite pain medications. 5. Call the surgeon or go to the nearest ER if you notice any bleeding or secretions coming out of the incision sites. Also call the surgeon if you notice any blood in stool, if you have persistent fevers, or any other unusual signs or symptoms. 6. Follow-up with the surgeon [Dr. Foster] in 7 days for incision check. 7. Avoid heavy lifting [more than 10-15 pounds] for 4 weeks. JACKELYN VILLANUEVA NP Aug 29, 2018 10:30
--- NOTE | 2018-08-29 10:36 | DS ---
Discharge Summary Admission/Discharge Info Admit Date/Time Discharge Date/Time Home Meds Active Scripts [Work Note] No Conflict Check This is to certify that this patient was hospitalized at [facility] and the patient's significant other Kellen Melendez was with the patient during the hospitalization and please excuse Kellen from work on 08/27/2018 and 08/28/2018. Prov:JACKELYN VILLANUEVA NP 08/30/18 Pending Labs JACKELYN VILLANUEVA NP Aug 29, 2018 10:36
[2018-08-29 15:28] VITALS: BP 137/66; PULSE 77; RESP 18
--- NOTE | 2018-08-29 16:17 | PN ---
Date/Time of Note Date/Time of Note DATE: 08/29/18 TIME: 16:17 Assessment/Plan VTE Prophylaxis Risk score (from Nsg)>0 risk: 7 SCD applied (from Nsg): Yes Pharmacological prophylaxis: NA/contraindicated Pharm contraindication: low risk/ambulating Lines/Catheters IV Catheter Type (from Nrsg): Peripheral IV Urinary Cath still in place: No Assessment/Plan Hospital Course SUBJECTIVE: Continues to have abdominal pain, requiring pain medications. OBJECTIVE: Physical Exam General: Obese, 23 year-old female lying in bed in no apparent distress. HEENT: Normocephalic, atraumatic. Eyes: Anicteric sclerae, conjunctivae clear. ENT: Nasal septum midline, oral mucosa is dry. Neck supple, no JVD noticed. Respiratory: Bilaterally clear breath sounds. No use of accessory muscles of respiration. No adventitious breath sounds. Cardiovascular: S1, S2 heard. No murmurs or gallops. Abdomen: Soft, nontender, and nondistended. Dressings over laparoscopic incision sites. Bowel sounds positive in all 4 quadrants. Genitourinary: Deferred. Extremities: No cyanosis, no clubbing, no edema. Peripheral pulses palpable. Neurologic: Cranial nerves II through XII grossly intact. The patient is awake, alert, and oriented. Skin: Normal skin turgor. No skin rashes. Labs & Vitals per chart ASSESSMENT & PLAN 23-year-old female with no significant past medical history who presented to the emergency room with chief complaint of abdominal pain with multiple episodes of nausea and vomiting, who was previously evaluated at [facility] and has been managed symptomatically for her abdominal pain. Gallbladder ultrasound at [facility] ER showed a mobile 1.7 cm stone in the gallbladder neck with findings suggestive of acute cholecystitis and hepato- steatosis. 1. Acute cholecystitis with hydrops. Status post laparoscopic cholecystectomy on 08/28/2018. Advancement of diet as per general surgery. Encourage ambulation and frequent use of incentive spirometry. 2. Obesity. BMI 31 kg/m. Weight reduction advised. 3. Fluids, electrolytes, and nutrition. On full liquid diet. Advancement of diet as per general surgery 4. DVT prophylaxis Bilateral SCDs. Ambulation. 5. Plan. Continue pain control. Advance diet as tolerated. Encourage ambulation and frequent use of incentive spirometry. Disposition: Discharge the patient home once cleared by surgery. The patient was seen in collaboration with Dr. Marks. Result Diagram: 08/29/18 0430 08/29/18 0430 Results 24hrs Laboratory Tests Test 08/29/18 04:30 White Blood Count 10.0 # Red Blood Count 4.48 Hemoglobin 13.6 Hematocrit 39.7 Mean Corpuscular Volume 88.6 Mean Corpuscular Hemoglobin 30.4 Mean Corpuscular Hemoglobin Concent 34.3 Red Cell Distribution Width 12.4 Platelet Count 314 Mean Platelet Volume 10.3 Immature Granulocytes % 0.300 Neutrophils % 89.9 H Lymphocytes % 9.0 L Monocytes % 0.7 Eosinophils % 0.0 Basophils % 0.1 Nucleated Red Blood Cells % 0.0 Immature Granulocytes # 0.030 Neutrophils # 9.0 H Lymphocytes # 0.9 Monocytes # 0.1 L Eosinophils # 0.0 Basophils # 0.0 Nucleated Red Blood Cells # 0.0 Sodium Level 139 Potassium Level 4.0 Chloride Level 104 Carbon Dioxide Level 27 Anion Gap 8 Blood Urea Nitrogen < 2 L Creatinine 0.51 Est Glomerular Filtrat Rate mL/min > 60 Glucose Level 175 Calcium Level 9.4 Phosphorus Level 3.3 Magnesium Level 1.8 Total Bilirubin 0.6 Direct Bilirubin 0.00 Indirect Bilirubin 0.6 Aspartate Amino Transf (AST/SGOT) 42 Alanine Aminotransferase (ALT/SGPT) 53 Alkaline Phosphatase 63 Total Protein 7.2 Albumin 4.1 Globulin 3.10 Albumin/Globulin Ratio 1.32 Exam/Review of Systems Exam Vitals Vital Signs Date Temp Pulse Resp B/P (MAP) Pulse Ox O2 O2 Flow FiO2 Time Delivery Rate 08/29/18 98.2 77 18 137/66 92 Room Air 15:28 (89) 08/28/18 2.0 18:33 Intake and Output 08/28/18 08/28/18 08/29/18 1515:00 23:00 07:00 IntakeIntake Total 100 ml 2200 ml 900 ml OutputOutput Total 40 ml BalanceBalance 100 ml 2160 ml 900 ml Results Results 24hrs Laboratory Tests Test 08/29/18 04:30 White Blood Count 10.0 # Red Blood Count 4.48 Hemoglobin 13.6 Hematocrit 39.7 Mean Corpuscular Volume 88.6 Mean Corpuscular Hemoglobin 30.4 Mean Corpuscular Hemoglobin Concent 34.3 Red Cell Distribution Width 12.4 Platelet Count 314 Mean Platelet Volume 10.3 Immature Granulocytes % 0.300 Neutrophils % 89.9 H Lymphocytes % 9.0 L Monocytes % 0.7 Eosinophils % 0.0 Basophils % 0.1 Nucleated Red Blood Cells % 0.0 Immature Granulocytes # 0.030 Neutrophils # 9.0 H Lymphocytes # 0.9 Monocytes # 0.1 L Eosinophils # 0.0 Basophils # 0.0 Nucleated Red Blood Cells # 0.0 Sodium Level 139 Potassium Level 4.0 Chloride Level 104 Carbon Dioxide Level 27 Anion Gap 8 Blood Urea Nitrogen < 2 L Creatinine 0.51 Est Glomerular Filtrat Rate mL/min > 60 Glucose Level 175 Calcium Level 9.4 Phosphorus Level 3.3 Magnesium Level 1.8 Total Bilirubin 0.6 Direct Bilirubin 0.00 Indirect Bilirubin 0.6 Aspartate Amino Transf (AST/SGOT) 42 Alanine Aminotransferase (ALT/SGPT) 53 Alkaline Phosphatase 63 Total Protein 7.2 Albumin 4.1 Globulin 3.10 Albumin/Globulin Ratio 1.32 Medications Medication Current Medications IV Flush (NS 3 ml) 3 ml PER PROTOCOL IV ; Start 08/27/18 at 04:30 Ondansetron HCl (Zofran Inj) 4 mg Q6H PRN IV NAUSEA/VOMITING Last administered on 08/28/18at 08:46; Admin Dose 4 MG; Start 08/27/18 at 04:30 Acetaminophen (Tylenol Supp) 650 mg Q6H PRN [place] .PAIN 1-3 OR TEMP; Start 9 at 04:30 Morphine Sulfate (morphine) 3 mg Q4H PRN IV .SEVERE PAIN 7-10 Last administered on 08/28/18at 20:00; Admin Dose 3 MG; Start 08/27/18 at 04:30 Famotidine (Pepcid Iv) 20 mg Q12 IV Last administered on 08/29/18at 08:25; Admin Dose 20 MG; Start 08/27/18 at 09:00 Albuterol/ Ipratropium (Duoneb) 3 ml Q2H RESP THERAPY PRN HHN SHORTNESS OF BREATH; Start 08/27/18 at 04:30 Ketorolac Tromethamine (Toradol) 30 mg Q6H PRN IV PAIN LEVEL 1-3 Last administered on 08/29/18at 11:21; Admin Dose 30 MG; Start 08/27/18 at 04:30; Stop 08/30/18 at 04:29 Piperacillin Sod/ Tazobactam Sod 100 ml @ 200 mls/hr Q6 IVPB Last administered on 08/29/18at 13:00; Admin Dose 200 MLS/HR; Start 08/27/18 at 08:00 Acetaminophen/ Hydrocodone Bitart ([place] (5/325)) 1 tab Q6H PRN PO PAIN LEVEL 6-10 Last administered on 08/29/18at 08:27; Admin Dose 1 TAB; Start 08/28/18 at 18:30 Metoclopramide HCl (Reglan) 10 mg Q6H PRN IV NAUSEA AND/OR VOMITING; Start 08/28/18 at 18:30 Ondansetron HCl (Zofran Inj) 4 mg Q6H PRN IV NAUSEA AND/OR VOMITING; Start 08/28/18 at 18:30 Diphenhydramine HCl (Benadryl) 25 mg Q6H PRN IV ITCHING; Start 08/28/18 at 18:30 JACKELYN VILLANUEVA NP Aug 29, 2018 16:17
[2018-08-29 19:51] VITALS: BP 152/81; PULSE 80; RESP 18
[2018-08-30] MEDS: PIPER-TAZO 3.375 GM IV (PMX) 100 ML IVPB SCH ×2 (00:18→05:58)
[2018-08-30] MEDS: HYDROCODONE/APAP (5/325) TAB PO PRN (00:58)
[2018-08-30 02:21] VITALS: BP 96/64; PULSE 60; RESP 18
[2018-08-30 07:32] VITALS: BP 109/67; PULSE 57; RESP 18
[2018-08-30] MEDS: FAMOTIDINE 20 MG INJ IV SCH (09:02)
[2018-08-30] MEDS ORDERED: Work Note (09:25)
--- NOTE | 2018-08-30 09:51 | DS ---
Date/Time of Note Date/Time of Note DATE: 08/30/18 TIME: 09:50 Discharge Summary Admission/Discharge Info Admit Date/Time Aug 27, 2018 at 03:10 Discharge Date/Time Discharge Diagnosis 1. Acute on chronic cholecystitis. Gallbladder hydrops. Status post laparo scopic cholecystectomy on 08/28/2018. 2. Obesity. BMI 31 kg/m. Patient Condition: Stable Consults Michael Swift MD, General Surgery. Procedures Date/Time of Note Date/Time of Note DATE: 08/28/18 TIME: 18:02 Post procedure note Operative Report Preoperative Diagnosis Acute cholecystitis, Hydrops, chronic cholecystitis Postoperative Diagnosis Same Operation/Procedure Performed Lap cholecystectomy Surgeon Michael Swift MD. Hx of Present Illness This is a 23-year-old female with no significant past medical history who presented to the emergency room with chief complaint of abdominal pain with multiple episodes of nausea and vomiting, who was previously evaluated at [facility] and has been managed symptomatically for her abdominal pain. Gallbladder ultrasound at [facility] ER showed a mobile 1.7 cm stone in the gallbladder neck with findings suggestive of acute cholecystitis and hepato-steatosis. Hospital Course The patient was admitted to inpatient setting. She was provided with adequate pain control. She was started on empiric antimicrobials including coverage for anaerobes. A general surgery consult was obtained. The patient underwent a laparoscopic cholecystectomy on 08/28/2018. Intraoperative findings revealed chronic cholecystitis as well as gallbladder hydrops. Postoperatively, the patient was started on a clear liquid diet and the patient's diet was advanced as tolerated to a regular consistency diet without any significant gastrointestinal symptoms. She was encouraged on frequent ambulation and use of incentive spirometry. The patient had an uneventful postoperative course. The patient was cleared by general surgery to be discharged home. The patient is related a healthy individual with no significant comorbidities o ther than obesity. The patient had a BMI of 31 kg/m. The patient's fasting lipid panel and hemoglobin A1c were within normal limits. The patient was advised on weight reduction. The patient had a stable hospital course. Discharge Instructions 1. Regular diet as tolerated. 2. Keep incisions clean and dry. May shower. Avoid tub baths and swimming for 2 weeks. Use mild soap and pat dry the incisions. 3. Take medications as needed for pain. 4. Call the surgeon or go to the nearest ER if you have severe abdominal pain despite pain medications. 5. Call the surgeon or go to the nearest ER if you notice any bleeding or secretions coming out of the incision sites. Also call the surgeon if you notice any blood in stool, if you have persistent fevers, or any other unusual signs or symptoms. 6. Follow-up with the surgeon [Dr. Weems] in 7 days for incision check. 7. Avoid heavy lifting [more than 10-15 pounds] for 4 weeks. The patient verbalized understanding of her discharge instructions. At this time I would like to thank Dr. Swift for seeing the patient, doing the necessary procedures, and providing clinical recommendations. The patient was seen in collaboration with Dr. Marks. [facility] Active Scripts [Work Note] No Conflict Check This is to certify that this patient was hospitalized at [facility] and the patient's significant other Kellen Melendez was with the patient during the hospitalization and please excuse Kellen from work on 08/27/2018 and 08/28/2018. Prov:JACKELYN VILLANUEVA NP 08/30/18 Follow-up Plan Michael Swift MD Specialty: General Surgery Office Address [address] [place] [address] [address] [place] [address] Office Primary Care Provider Care Physician No Primary Time spent on discharge: > 30 minutes Pending Labs Laboratory Tests Test 08/30/18 04:25 White Blood Count 7.7 10^3/ul (4.8-10.8) Red Blood Count 3.90 10^6/ul (4.20-5.40) Hemoglobin 11.8 g/dl (12.0-16.0) Hematocrit 34.3 % (37.0-47.0) Mean Corpuscular Volume 87.9 fl (82.0-101.0) Mean Corpuscular Hemoglobin 30.3 pg (29.0-33.0) Mean Corpuscular Hemoglobin Concent 34.4 g/dl (32.0-37.0) Red Cell Distribution Width 12.9 % (11.5-14.5) Platelet Count 286 10^3/UL (140-415) Mean Platelet Volume 10.4 fl (7.4-10.4) Immature Granulocytes % 0.300 % (0.001-0.429) Neutrophils % 55.7 % (39.0-77.0) Lymphocytes % 35.7 % (15.0-51.0) Monocytes % 7.6 % (0.0-11.0) Eosinophils % 0.3 % (0.0-7.0) Basophils % 0.4 % (0.0-2.0) Nucleated Red Blood Cells % 0.0 /100WBC (0.0-0.0) Immature Granulocytes # 0.020 10^3/ul (0.0-0.031) Neutrophils # 4.3 10^3/ul (1.6-7.5) Lymphocytes # 2.7 10^3/ul (0.8-2.9) Monocytes # 0.6 10^3/ul (0.3-0.9) Eosinophils # 0.0 10^3/ul (0.0-0.5) Basophils # 0.0 10^3/ul (0.0-0.1) Nucleated Red Blood Cells # 0.0 10^3/ul (0.0-0.0) Sodium Level 141 mmol/L (135-144) Potassium Level 3.5 mmol/L (3.5-5.1) Chloride Level 107 mmol/L (97-110) Carbon Dioxide Level 27 mmol/L (21-31) Anion Gap 7 (5-13) Blood Urea Nitrogen 5 mg/dl (7-20) Creatinine 0.61 mg/dl (0.44-1.00) Est Glomerular Filtrat Rate mL/min > 60 mL/min (>60) Glucose Level 97 mg/dl (70-220) Calcium Level 9.1 mg/dl (8.4-10.2) Phosphorus Level 3.7 mg/dl (2.5-4.9) Magnesium Level 1.9 mg/dl (1.7-2.5) Total Bilirubin 0.5 mg/dl (0.2-1.3) Direct Bilirubin 0.00 mg/dl (0.00-0.20) Indirect Bilirubin 0.5 mg/dl (0-1.1) Aspartate Amino Transf (AST/SGOT) 45 IU/L (15-46) Alanine Aminotransferase (ALT/SGPT) 71 IU/L (13-69) Alkaline Phosphatase 55 IU/L (42-121) Total Protein 6.3 g/dl (6.1-8.1) Albumin 3.6 g/dl (3.3-4.9) Globulin 2.70 g/dl (1.3-3.2) Albumin/Globulin Ratio 1.33 JACKELYN VILLANUEVA NP Aug 30, 2018 09:51
== END 2018-08-30 11:10 | disposition home or self-care (01) | DRG 419 ==
LOC: FTE 22:56 → MS1 08-27 03:10
PROVIDERS: ADMIT Internal Medicine; ATTEND Internal Medicine
PROC: 0FT44ZZ Resection of Gallbladder, Percutaneous Endoscopic Approach (ICD-10-PCS; principal; 2018-08-28 16:30)
DX: K80.60 Calculus of gallbladder and bile duct with cholecystitis, unspecified, without obstruction (principal); E66.01 Morbid (severe) obesity due to excess calories; Z68.31 Body mass index [BMI] 31.0-31.9, adult
CPT/HCPCS: 74160; 76705; 80053; 80061; 81003; 81025; 83036; 83690; 83735; 84100; 85025; 88304; J0690; J1100; J1170; J1885; J2250; J2270; J2405; J2543; J2710; J2795; J3010; J7030; J7042; J7120; Q9967